=== PATIENT | female | born 1985 | race Caucasian/White ===

== ENCOUNTER 2019-07-07 20:51 | Inpatient (IN) ==
[~2019-07-07 20:51] MED LIST: *HR* FentaNYL (PF) 100 MCG/2 ML VIAL ONE; *HR* Morphine Sulfate/PF 10 MG/10 ML AMPUL ONE; *HR* Oxytocin 10 UNIT/ML VIAL IM ONE; Clindamycin 900 MG/50 ML 900 MG/50 ML IV.SOLN IVPB ONE; EPHEDrine 50 MG/ML VIAL ONE; Famotidine 20 MG/2 ML VIAL IVP ONE; Gentamicin 290 MG in 0.9 % Sodium Chloride 100 ML IVPB STA; Metoclopramide 10 MG/2 ML VIAL IVP ONE; Morphine Sulfate 2 MG/ML SYRINGE IVP PRN; Ondansetron 4 MG/2 ML VIAL IVP PRN; Ondansetron 4 MG/2 ML VIAL ONE; Oxytocin 20 units/ LR 1000 mL 20 UNIT/1,000 ML BAG IVC ONE; Ringers Solution, Lactated 1,000 ML IVC ONE; Ringers Solution, Lactated 1,000 ML ONE
[2019-07-07] MEDS ORDERED: Acetaminophen IV 1,000 MG/100 ML INFUS..BTL IVPB ONE (20:57)
[2019-07-07] MEDS ORDERED: *HR* OxyCODONE Immed Rel 5 MG TABLET PO PRN ×2 (20:57→23:05)
[2019-07-07 21:02] LABS: Basophils % 0.2 %; Hematocrit 33.2 % (35.3-44.9); Hemoglobin 10.5 g/dL (11.5-15.4); Immature Granulocytes % 0.4 % (0-4); Lymphocytes # 1.5 K/mcL (0.6-4.6); Mean Corpuscular HGB Conc 31.6 g/dL (31.6-35.5); Mean Corpuscular Hemoglobin 24.5 pg (28.0-33.3); Mean Corpuscular Volume 77.6 fL (83.0-100.0); Mean Platelet Volume 12.4 fL (9.4-12.4); Monocytes # 0.6 K/mcL (0.0-1.3); Neutrophils # 9.2 K/mcL (1.6-8.9); Platelet Count 345 K/mcL (140-400); Red Blood Count 4.28 M/mcL (3.82-4.97); Red Cell Distribution Width 15.2 % (11.5-14.5); Segmented Neutrophils % 81.4 %; White Blood Count 11.3 K/mcL (4.3-11.1)
[2019-07-07] MEDS ORDERED: Azithromycin 500 MG in 0.9 % Sodium Chloride 250 ML IVPB ONE (21:34)
[2019-07-07] MEDS ORDERED: Ringers Solution, Lactated 1,000 ML ONE (21:43)
[2019-07-07] MEDS ORDERED: Ondansetron 4 MG/2 ML VIAL IVP PRN (23:05)
[2019-07-07] MEDS ORDERED: *HR* HYDROmorphone (PF) 1 MG/ML SYRINGE IVP PRN (23:05)
[2019-07-07] MEDS ORDERED: Oxytocin 20 units/ LR 1000 mL 20 UNIT/1,000 ML BAG IVC ONE (23:15)
[2019-07-07] MEDS ORDERED: Measles/Mumps/Rubella Vacc 0.5 ML VIAL SQ ONE (23:46)
[2019-07-08] MEDS ORDERED: Ondansetron 4 MG/2 ML VIAL IVP PRN (01:39)
[2019-07-08] MEDS ORDERED: Oxytocin 20 units/ LR 1000 mL 20 UNIT/1,000 ML BAG IVC SCH (01:39)
[2019-07-08] MEDS ORDERED: Sennosides 8.6 MG TABLET PO PRN (01:39)
[2019-07-08] MEDS ORDERED: Metoclopramide 10 MG/2 ML VIAL IVP PRN (01:39)
[2019-07-08 02:16] LABS: Alanine Aminotransferase 9 Units/L (7-52); Aspartate Amino Transferase 14 Units/L (13-39); BUN/Creatinine Ratio 12 (6-26); Blood Urea Nitrogen 6 mg/dL (6-20); Lactate Dehydrogenase 215 Units/L (140-271); Uric Acid 6.2 mg/dL (2.3-7.6); eGFR For African Americans > 60 (> 60); eGFR For Non-African Americans > 60 (> 60)
[2019-07-08] MEDS: *HR* OxyCODONE Immed Rel 5 MG TABLET PO PRN ×5 (03:18→23:20)
[2019-07-08] MEDS: Simethicone 80 MG TAB.CHEW PO PRN ×4 (03:18→18:16)
[2019-07-08] MEDS: Ibuprofen 600 MG TABLET PO PRN ×4 (03:18→21:08)
[2019-07-08 03:24] LABS: Amphetamine Screen,Urine Negative ng/mL (Cutoff=1000); Barbiturate Screen,Urine Negative ng/mL (Cutoff=200); Benzodiazepines Screen,Urine Negative ng/mL (Cutoff=200); Cannabinoid Screen,Urine Negative ng/mL (Cutoff = 50); Cocaine Screen,Urine Negative ng/mL (Cutoff= 300); Opiate Screen,Urine Positive ng/mL (Cutoff=300); Phencyclidine Screen,Urine Negative ng/mL (Cutoff=25)
[2019-07-08 06:01] LABS: Basophils % 0.2 %; Immature Granulocytes % 0.7 % (0-4); Lymphocytes # 1.4 K/mcL (0.6-4.6); Lymphocytes % 11.8 %; Mean Corpuscular HGB Conc 31.5 g/dL (31.6-35.5); Mean Corpuscular Hemoglobin 24.8 pg (28.0-33.3); Mean Corpuscular Volume 78.5 fL (83.0-100.0); Monocytes # 0.9 K/mcL (0.0-1.3); Monocytes % 7.9 %; Neutrophils # 9.2 K/mcL (1.6-8.9); Platelet Count 191 K/mcL (140-400); Red Blood Count 3.31 M/mcL (3.82-4.97); Red Cell Distribution Width 15.2 % (11.5-14.5); Segmented Neutrophils % 79.4 %; White Blood Count 11.6 K/mcL (4.3-11.1)
[2019-07-08 06:03] LABS: Hemoglobin 8.2 g/dL (11.5-15.4)
[2019-07-08] MEDS: Prenatal Vit/FA 1 EACH TABLET PO SCH (07:35)
[2019-07-09] MEDS: *HR* OxyCODONE Immed Rel 5 MG TABLET PO PRN ×5 (04:38→23:22)
[2019-07-09] MEDS: Acetaminophen 325 MG TABLET PO PRN ×4 (04:38→23:23)
[2019-07-09] MEDS: Ibuprofen 600 MG TABLET PO PRN ×2 (07:40→12:53)
[2019-07-09] MEDS: Simethicone 80 MG TAB.CHEW PO PRN ×3 (08:06→23:25)
[2019-07-09] MEDS: Prenatal Vit/FA 1 EACH TABLET PO SCH (17:09)
[2019-07-10] MEDS: *HR* OxyCODONE Immed Rel 5 MG TABLET PO PRN ×2 (04:56→07:52)
[2019-07-10] MEDS: Acetaminophen 325 MG TABLET PO PRN (07:52)
[2019-07-10] MEDS: Prenatal Vit/FA 1 EACH TABLET PO SCH (07:53)
[2019-07-10 08:04] VITALS: BP 145/93
[2019-07-10] MEDS ORDERED: FLUoxetine HCl 10 MG CAPSULE PO SCH (10:00)
[2019-07-10] MEDS: Ibuprofen 600 MG TABLET PO PRN (10:39)
[2019-07-10] MEDS: Simethicone 80 MG TAB.CHEW PO PRN (10:39)
[2019-07-10] MEDS ORDERED: Measles/Mumps/Rubella Vacc 0.5 ML VIAL SQ ONE (10:42)
== END 2019-07-10 12:00 | disposition home or self-care (01) | DRG 540 ==
LOC: 1NENULAB → 1NENUOBS 07-08 01:38
PROVIDERS: ADMIT Registered Nurse; ATTEND Registered Nurse